=== PATIENT | female | born 1990 | race African-American/Black ===

== ENCOUNTER 2016-09-23 09:11 | Emergency (ER) | payer SELFPAY ==
[2016-09-23 09:18] VITALS: BP 111/78; PULSE 63; TEMP 97.8; BMI 25.6
[2016-09-23] MEDS ORDERED: SODIUM CHLORIDE 1,000 ML IV STA (10:23)
[2016-09-23] MEDS ORDERED: ONDANSETRON 4 MG/2 ML VIAL IVPUSH ONE (10:23)
[2016-09-23] MEDS ORDERED: KETOROLAC TROMETHAMINE 30 MG/1 ML VIAL IVPUSH ONE (10:23)
[2016-09-23] MEDS ORDERED: KETOROLAC TROMETHAMINE 30 MG/1 ML VIAL ONE (10:46)
[2016-09-23] MEDS ORDERED: ONDANSETRON 4 MG/2 ML VIAL ONE (10:47)
[2016-09-23 11:28] LABS: BASOPHIL 0.9 % (0-2.0); MCH 28.6 pg (25.7-33.7); MCHC 33.7 g/dl (32.0-36.0); MEAN PLT VOLUME 9.7 fl (7.5-11.1); NEUTROPHILS 56.4 % (42.8-82.8); PLATELET COUNT 203 K/MM3 (134-434); RDW 14.7 % (11.6-15.6); WHITE BLOOD COUNT 5.3 K/mm3 (4.0-10.0)
[2016-09-23 11:32] LABS: URINE APPEARANCE SLCLOUDY; URINE BILIRUBIN NEGATIVE (NEGATIVE); URINE BLOOD NEGATIVE (NEGATIVE); URINE COLOR YELLOW; URINE GLUCOSE (UA) NEGATIVE (NEGATIVE); URINE KETONE NEGATIVE (NEGATIVE); URINE LEUK ESTERASE NEGATIVE (NEGATIVE); URINE NITRITE NEGATIVE (NEGATIVE); URINE PROTEIN NEGATIVE (NEGATIVE); URINE UROBILINOGEN NEGATIVE E.U./dl (0.2-1.0)
--- NOTE | 2016-09-23 11:35 | PDOC ---
History of Present Illness - General Chief Complaint: Pain Stated Complaint: abd pain SORE THROAT, NAUSEA Time Seen by Provider: 09/23/16 10:05 History Source: Patient Exam Limitations: No Limitations - History of Present Illness Travel History: No Initial Comments: 09/23/16 11:25 26-year-old female presents to the emergency room with complaints of sore throat , mild frontal headache, chills, upper abdominal pain, nausea with 2 episodes of vomiting. Patient unsure for last menses and is requesting a test today. Patient denies recent travel, recent sick contacts, difficulty swallowing , dizziness, visual changes, neck stiffness, chest pain, shortness of breath, cough, lower abdominal pain, dysuria, diarrhea or rash. Patient denies medical history. Timing/Duration: reports: constant Quality: reports: moderate Abdominal Pain Onset Location: reports: epigastric Pain Radiation: reports: no radiation Activities at Onset: reports: none Aggravating Factors: improves with: None Alleviating Factors: improves with: None Past History - Travel Traveled outside of the country in the last 30 days: No Close contact w/someone who was outside of country & ill: No - Past Medical History Allergies/Adverse Reactions: Allergies Allergy/AdvReac Type Severity Reaction Status Date / Time No Known Allergies Allergy Verified 09/23/16 09:15 Home Medications: Ambulatory Orders NK [No Known Home Medication] 09/23/16 Asthma: Yes - Psycho/Social/Smoking Cessation Hx Anxiety: No Suicidal Ideation: No Smoking History: Never smoked Information on smoking cessation initiated: No Hx Alcohol Use: No Drug/Substance Use Hx: No Substance Use Type: None Patient Lives Alone: No Review of Systems - Review of Systems Able to Perform ROS?: Yes Constitutional: No: Symptoms Reported HEENTM: Yes: Throat Pain Respiratory: No: Symptoms reported Cardiac (ROS): No: Symptoms Reported ABD/GI: Yes: Nausea, Abdominal cramping. No: Vomiting : Yes: Frequency Musculoskeletal: No: Symptoms Reported Integumentary: No: Symptoms Reported Neurological: Yes: Headache (mild frontal) *Physical Exam - Vital Signs Last Vital Signs Temp Pulse Resp BP Pulse Ox 97.8 F 63 18 111/78 100 09/23/16 09:16 09/23/16 09:16 09/23/16 09:16 09/23/16 09:16 09/23/16 09:16 - Physical Exam General Appearance: Yes: Nourished, Appropriately Dressed. No: Apparent Distress HEENT: positive: EOMI, PAYTON, TMs Normal, Pharyngeal Erythema, Tonsillar Erythema. negative: Tonsillar Exudate Neck: negative: Supple Respiratory/Chest: positive: Lungs Clear, Normal Breath Sounds. negative: Respiratory Distress, Accessory Muscle Use Cardiovascular: positive: Regular Rhythm, Regular Rate. negative: Murmur Gastrointestinal/Abdominal: positive: Soft, Tenderness (epigastric and suprapubic) Musculoskeletal: negative: CVA Tenderness Extremity: positive: Normal Capillary Refill. negative: Pedal Edema Integumentary: positive: Normal Color, Warm, Moist Neurologic: positive: Motor Strength 5/5 (ambulatory) ED Treatment Course - LABORATORY CBC & Chemistry Diagram: 09/23/16 10:32 09/23/16 10:32 - Medications Given in the ED: ED Medications Discontinued Medications Generic Name Dose Route Start Last Admin Trade Name Freq PRN Reason Stop Dose Admin Sodium Chloride 1,000 mls @ 1,000 mls/hr 09/23/16 10:23 09/23/16 10:52 Normal Saline - IV 09/23/16 11:22 1,000 mls/hr ASDIR STA Administration Medical Decision Making - Medical Decision Making 09/23/16 11:01 Patient with complaints of sore throat, mild frontal headache, epigastric pain and with nausea. Patient examined epigastric tenderness with tonsillar and posterior pharynx erythema. Patient ordered for rapid strep including urine, CBC , comp, IV fluids, Toradol and Zofran. 09/23/16 11:54 Laboratory Tests 09/23/16 09/23/16 10:32 10:32 WBC 5.3 Hgb 12.2 Hct 36.2 Neutrophils % 56.4 Urine Ketones Negative Urine Nitrite Negative Ur Leukocyte Esterase Negative Patient negative for strep 09/23/16 12:07 Laboratory Tests 09/23/16 09/23/16 09/23/16 10:32 10:32 10:32 WBC 5.3 Hgb 12.2 Hct 36.2 Plt Count 203 Neutrophils % 56.4 Sodium 140 Potassium 4.5 Chloride 106 Carbon Dioxide 26 Anion Gap 8 BUN 13 Creatinine 0.7 Random Glucose 76 AST 20 ALT 28 Urine Ketones Negative Urine Nitrite Negative Ur Leukocyte Esterase Negative Urine HCG, Qual Negative Patient states feeling better with no complaints presently. Patient will be discharged home with recommendations to eat bland food rest and stay well- hydrated. *DC/Admit/Observation/Transfer Diagnosis at time of Disposition: Sore throat, Epigastric pain, Nausea - Discharge Dispostion Disposition: HOME Condition at time of disposition: Improved - Referrals Referrals: Taj Madden [Primary Care Provider] - - Patient Instructions Printed Discharge Instructions: Sore Throat Additional Instructions: Please drink plenty of fluids, rest, eat bland food for the next 48-72 hours.
[2016-09-23 11:51] LABS: ALBUMIN 3.9 g/dl (3.4-5.0); ANION GAP 8 (8-16); BILIRUBIN,TOTAL 0.8 mg/dL (0.2-1.0); CALCIUM 8.7 mg/dL (8.5-10.1); CO2 26 mmol/L (21-32); CREATININE 0.7 mg/dL (0.55-1.02); GLUCOSE,RANDOM 76 mg/dL (74-106); SGOT/AST 20 U/L (15-37); SGPT/ALT 28 U/L (12-78); TOT PROT 7.6 g/dl (6.4-8.2)
[2016-09-23 11:52] LABS: ALK PHOS 58 U/L (45-117)
== END 2016-09-23 12:30 | disposition home or self-care (01) ==
LOC: JER 09:11
PROC: 3E0337Z Introduction of Electrolytic and Water Balance Substance into Peripheral Vein, Percutaneous Approach (ICD-10-PCS; principal; 2016-09-23)
DX: J02.9 Acute pharyngitis, unspecified (principal); R10.30 Lower abdominal pain, unspecified; R11.0 Nausea
CPT/HCPCS: 36415; 80053; 81003; 84703; 85025; 87070; 87430; 99282-25

== ENCOUNTER 2017-06-28 03:47 | Emergency (ER) | payer OTHER ==
[2017-06-28 04:08] VITALS: BMI 26.5
[2017-06-28] MEDS ORDERED: ACETAMINOPHEN 325 MG TABLET (FP) PO ONE (04:36)
--- NOTE | 2017-06-28 04:45 | PDOC ---
History of Present Illness - General Chief Complaint: Sore Throat Stated Complaint: ABDOMINAL PAIN Time Seen by Provider: 06/28/17 04:05 History Source: Patient Exam Limitations: No Limitations - History of Present Illness Travel History: No Initial Comments: 06/28/17 04:40 This is a 27-year-old woman with past medical history of asthma who presents emergency Department 2 days of sore throat, subjective fevers, nasal congestion, rhinorrhea, global headache, moist nonproductive cough and lower abdominal pain. Patient denies sick contacts. Patient has not had her flu shot this year. Patient states she is an LMP of 1/6 and has not had care as of now. Patient also complains of constipation for 3 days with the usual bowel movement of daily to every other day. Patient denies any chest pain, shortness of breath, dysuria, hematuria, rectal bleeding, vaginal bleeding, vaginal discharge. Past History - Past Medical History Allergies/Adverse Reactions: Allergies Allergy/AdvReac Type Severity Reaction Status Date / Time No Known Allergies Allergy Verified 06/28/17 04:07 Home Medications: Ambulatory Orders Vit/Iron Fum/Folic AC [ Tablet] 1 each PO DAILY 06/28/17 Asthma: Yes - Reproductive History (#): 4 Para: 2 - Suicide/Smoking/Psychosocial Hx Smoking History: Never smoked Have you smoked in the past 12 months: No Information on smoking cessation initiated: No Hx Alcohol Use: No Drug/Substance Use Hx: No Substance Use Type: None Review of Systems - Review of Systems Able to Perform ROS?: Yes Is the patient limited Albanian proficient: No Constitutional: Yes: See HPI HEENTM: Yes: See HPI Respiratory: Yes: See HPI Cardiac (ROS): No: Symptoms Reported ABD/GI: Yes: See HPI : No: Symptoms Reported Musculoskeletal: No: Symptoms Reported Integumentary: No: Symptoms Reported Neurological: No: Symptoms reported Endocrine: No: Symptoms Reported Hematologic/Lymphatic: No: Symptoms Reported *Physical Exam - Vital Signs Last Vital Signs Temp Pulse Resp BP Pulse Ox 98.6 F 83 14 124/74 99 06/28/17 04:07 06/28/17 04:07 06/28/17 04:07 06/28/17 04:07 06/28/17 04:07 - Physical Exam General Appearance: Yes: Appropriately Dressed. No: Apparent Distress HEENT: positive: TMs Normal, Pharyngeal Erythema, Tonsillar Erythema, Nasal Congestion, Rhinorrhea. negative: Tonsillar Exudate, Sinus Tenderness Neck: positive: Trachea midline, Supple. negative: Tender, Stridor Respiratory/Chest: positive: Lungs Clear, Normal Breath Sounds. negative: Respiratory Distress, Accessory Muscle Use Cardiovascular: positive: Regular Rhythm, Regular Rate. negative: Murmur Female Pelvic Exam: positive: normal external exam, cervical os closed, normal adnexa, discharge (milky white). negative: CMT, adnexal tenderness, vaginal bleeding Gastrointestinal/Abdominal: positive: Normal Bowel Sounds, Soft. negative: Tender Musculoskeletal: positive: Normal Inspection. negative: CVA Tenderness Extremity: positive: Normal Inspection, Normal Range of Motion Integumentary: positive: Normal Color, Dry, Warm Neurologic: positive: Alert, Normal Response ED Treatment Course - LABORATORY CBC & Chemistry Diagram: 06/28/17 05:00 06/28/17 05:00 - RADIOLOGY Radiology Studies Ordered: Category Date Time Status TRANSVAGINAL US PREG [US] Stat Ultrasound 06/28/17 04:36 Ordered Medical Decision Making - Medical Decision Making 06/28/17 04:46 CC: Flulike symptoms and lower abdominal pain for 2 days A/P: 27-year-old with flulike symptoms and lower abdominal pain for 2 days with constipation for 3 days TMs clear with appropriate light reflex. No erythema or exudates noted to external auditory canal. Erythema present and pharynx. Cobblestoning noted to posterior oropharynx. No tonsillar exudate present. No halitosis present. Lungs clear to auscultation bilaterally. RRR. S1 and S2 present. No murmur, rub or gallop auscultated. Abdomen soft nontender nondistended. No CVA tenderness elicited. [employer] Specialist exam: normal external exam milky white odorless discharge present in vault. No blood noted. Cervical os closed No cervical motion or adnexal tenderness 11 weeks 1 day by dates Differential diagnoses include upper respiratory infection, pharyngitis of bacterial versus viral origin; ectopic , round ligament pain, constipation, urinary tract infection, PID Rapid strep influenza testing. Tylenol 650 mg orally now. CBC, BMP, type and screen, beta hCG, urinalysis, urine culture, transvaginal ultrasound 06/28/17 07:12 I have given report to TIMO Dubose regarding this patient. Pt's initial chief complaint: lower abdominal pain, sore throiat Pt's work up completed prior to sign out: Labs, UA Pt treatment given from prior staff: Tylenol Pt plan to be completed: HONEY Dispo: [ Pending] *DC/Admit/Observation/Transfer Diagnosis at time of Disposition: Abdominal pain Qualifiers: Abdominal location: unspecified location Qualified Code(s): R10.9 - Unspecified abdominal pain URI (upper respiratory infection) Qualifiers: URI type: unspecified viral URI Qualified Code(s): J06.9 - Acute upper respiratory infection, unspecified - Discharge Dispostion Disposition: AGAINST MEDICAL ADVICE - Referrals Referrals: Mikaela Mixon MD [Primary Care Provider] - - Patient Instructions Additional Instructions: Your flu and strep tests were negative. The rest of your labs and your ultrasound report are still pending. You have decided to leave before evaluation is complete and were advised of medical risks. You have requested that ED call with results and have provided your phone number. Please follow-up with your OB next week - Post Discharge Activity
[2017-06-28] MEDS ORDERED: ACETAMINOPHEN 325 MG TABLET (FP) ONE (04:59)
[2017-06-28 05:09] LABS: BASO % 0.5 % (0-2.0); EOS % 1.6 % (0-4.5); HEMOGLOBIN 11.9 GM/dL (10.7-15.3); LYMPH % 18.5 % (8-40); MCH 30.5 pg (25.7-33.7); MCHC 35.1 g/dl (32.0-36.0); MEAN CELL VOLUME 86.8 fl (80-96); MONO % 12.4 % (3.8-10.2); PLATELET COUNT 208 K/MM3 (134-434); RBC 3.91 M/mm3 (3.60-5.2); RDW 13.6 % (11.6-15.6); WHITE BLOOD COUNT 8.7 K/mm3 (4.0-10.0)
[2017-06-28 05:39] LABS: URINE APPEARANCE SLCLOUDY; URINE BILIRUBIN NEGATIVE (<2.0 mg/dL); URINE BLOOD NEGATIVE (NEGATIVE); URINE COLOR YELLOW; URINE GLUCOSE (UA) NEGATIVE (NEGATIVE); URINE KETONE NEGATIVE (NEGATIVE); URINE NITRITE NEGATIVE (NEGATIVE); URINE PROTEIN NEGATIVE (NEGATIVE); URINE UROBILINOGEN NEGATIVE mg/dL (0.2-1.0)
[2017-06-28 06:21] LABS: URINE LEUK ESTERASE 2+ (NEGATIVE)
[2017-06-28 06:22] LABS: EPI CELLS FEW /HPF (FEW); URINE MUCUS FEW
[2017-06-28 07:29] VITALS: BP 104/60; PULSE 81; TEMP 98
--- NOTE | 2017-06-28 07:35 | PDOC ---
*Physical Exam - Vital Signs Last Vital Signs Temp Pulse Resp BP Pulse Ox 98 F 81 17 104/60 98 06/28/17 07:28 06/28/17 07:28 06/28/17 07:28 06/28/17 07:28 06/28/17 07:28 - Physical Exam General Appearance: Yes: Appropriately Dressed. No: Apparent Distress Neck: positive: Supple Cardiovascular: positive: Regular Rate, S1, S2 Gastrointestinal/Abdominal: positive: Soft. negative: Tender Integumentary: positive: Dry, Warm Neurologic: positive: Fully Oriented, Alert, Normal Mood/Affect ED Treatment Course - LABORATORY CBC & Chemistry Diagram: 06/28/17 05:00 06/28/17 05:00 - ADDITIONAL ORDERS Additional order review: Laboratory Results 06/28/17 05:05 Urine Color Yellow Urine Appearance Slcloudy Urine pH 6.0 Ur Specific [place] 1.019 Urine Protein Negative Urine Glucose (UA) Negative Urine Ketones Negative Urine Blood Negative Urine Nitrite Negative Urine Bilirubin Negative Urine Urobilinogen Negative Ur Leukocyte Esterase 2+ H Urine WBC (Auto) 4 Urine RBC (Auto) 1 Ur Epithelial Cells Few Urine Mucus Few 06/28/17 05:00 RBC 3.91 MCV 86.8 MCHC 35.1 RDW 13.6 MPV 9.0 Neutrophils % 67.0 Lymphocytes % 18.5 D Monocytes % 12.4 H Eosinophils % 1.6 Basophils % 0.5 - Medications Given in the ED: ED Medications Discontinued Medications Generic Name Dose Route Start Last Admin Trade Name Freq PRN Reason Stop Dose Admin Acetaminophen 650 mg 06/28/17 04:36 06/28/17 05:01 Tylenol - PO 06/28/17 04:37 650 mg ONCE ONE Administration Medical Decision Making - Medical Decision Making 06/28/17 07:34 Patient signed out to me at 7 AM by SEBASTIAN Vazquez Pt is a 27-year-old female, history of asthma, currently approximately 11 weeks per dates, here with URI symptoms and lower abdominal pain. + pharyngeal erythema on exam per prior team. Flu, strep and ultrasound pending. UA with 2+ leuks and 4 wbc, urine culture pending. Patient denies any dysuria, flank pain, nausea, vomiting or fevers 06/28/17 09:07 On reevaluation patient denies any abdominal pain at this time. Flu and strep neg. Ultrasound still pending. Patient, however, wants to leave, states she's been here since 4 AM and wants to go home. Patient was advised that there are blood work in addition to ultrasound report that is still pending. Patient requesting that we call her with results. Patient signed AMA form and walked out of ED without signing discharge papers *DC/Admit/Observation/Transfer Diagnosis at time of Disposition: Abdominal pain Qualifiers: Abdominal location: unspecified location Qualified Code(s): R10.9 - Unspecified abdominal pain URI (upper respiratory infection) Qualifiers: URI type: unspecified viral URI Qualified Code(s): J06.9 - Acute upper respiratory infection, unspecified - Discharge Dispostion Disposition: AGAINST MEDICAL ADVICE - Referrals Referrals: Mikaela Mixon MD [Primary Care Provider] - - Patient Instructions Additional Instructions: Your flu and strep tests were negative. The rest of your labs and your ultrasound report are still pending. You have decided to leave before evaluation is complete and were advised of medical risks. You have requested that ED call with results and have provided your phone number. Please follow-up with your OB next week - Post Discharge Activity
[2017-06-28 10:17] LABS: ANION GAP 7 (8-16); BLOOD UREA NITROGEN 9 mg/dL (7-18); CALCIUM 8.6 mg/dL (8.5-10.1); CHLORIDE 107 mmol/L (98-107); CO2 22 mmol/L (21-32); CREATININE 0.5 mg/dL (0.55-1.02); GLUCOSE,RANDOM 92 mg/dL (74-106); POTASSIUM 4.1 mmol/L (3.5-5.1); SODIUM 136 mmol/L (136-145)
== END 2017-06-28 08:57 | disposition left against medical advice (07) ==
LOC: JER 03:47
PROC: 3E033GC Introduction of Other Therapeutic Substance into Peripheral Vein, Percutaneous Approach (ICD-10-PCS; principal; 2017-06-28)
PROC: 3E0333Z Introduction of Anti-inflammatory into Peripheral Vein, Percutaneous Approach (ICD-10-PCS; 2017-06-28)
DX: J02.9 Acute pharyngitis, unspecified (principal); R10.9 Unspecified abdominal pain
CPT/HCPCS: 36415; 76801-TC; 80048; 81003; 81015; 84702; 85025; 87070; 87075; 87086; 87205; 87430; 87804; 96374; 96375; 99285-25

== ENCOUNTER 2018-02-07 20:51 | Emergency (ER) | payer OTHER ==
[2018-02-07 21:02] VITALS: TEMP 99.5; BMI 34.9
--- NOTE | 2018-02-07 21:39 | PDOC ---
History of Present Illness - General Chief Complaint: Lightheaded Stated Complaint: DIZZY, FEVER Time Seen by Provider: 02/07/18 21:29 - History of Present Illness Initial Comments: 02/07/18 21:39 27-year-old woman with past medical history of asthma who presents 4 days after vaginal , headache, nausea, dizziness felt like she was going to pass out 1 hour ago while having a BM vaginal spotting since giving / stopped breast feeding since yesterday Past History - Past Medical History Allergies/Adverse Reactions: Allergies Allergy/AdvReac Type Severity Reaction Status Date / Time No Known Allergies Allergy Verified 02/07/18 20:58 Home Medications: Ambulatory Orders Vit/Iron Fum/Folic AC [ Tablet] 1 each PO DAILY 06/28/17 Anemia: No Asthma: Yes Cancer: No Cardiac Disorders: No CVA: No COPD: No DVT: No Dementia: No Diabetes: No Dialysis: No GI Disorders: No Disorders: No HTN: No Hypercholesterolemia: No Kidney Stones: No Liver Disease: No Psychiatric Problems: No Seizures: No Thyroid Disease: No Lung CA: No - Reproductive History (#): 4 Para: 2 - Immunization History Immunization Up to Date: Yes - Suicide/Smoking/Psychosocial Hx Smoking History: Never smoked Have you smoked in the past 12 months: No Information on smoking cessation initiated: No Hx Alcohol Use: No Drug/Substance Use Hx: No Substance Use Type: None *Physical Exam - Vital Signs Last Vital Signs Temp Pulse Resp BP Pulse Ox 99.5 F 104 H 16 133/75 99 02/07/18 20:59 02/07/18 20:59 02/07/18 20:59 02/07/18 20:59 02/07/18 20:59 - Physical Exam Comments: 02/07/18 21:55 normal exam. ED Treatment Course - LABORATORY CBC & Chemistry Diagram: 02/07/18 22:00 02/07/18 22:00 Medical Decision Making - Medical Decision Making DDX including but not limited to: W/U: - TX: - ED Course: 02/07/18 21:55 100mg PO labetolol for HTN of systolic BP 146 on both arms 02/07/18 21:56 Tylenol given for headache 02/07/18 22:30 Dr. Phelps ([facility]) contacted. Pending call back. 02/07/18 23:40 Dr. Phelps second attempt at contacting. UA: + leuk esterase, + WBC TSH: .24 *DC/Admit/Observation/Transfer - Referrals Referrals: Chiquis Madden [Primary Care Provider] - - Patient Instructions - Post Discharge Activity
--- NOTE | 2018-02-07 21:41 | PDOC ---
Attending Attestation - HPI HPI: 02/07/18 22:46 The patient is a 27 year old female, with a significant PMH of asthma, who presents to the emergency department with headache that began tonight. The patient states she endorses associated symptoms of nausea, dizziness and felt like she was going to pass out 1 hour ago after her last BM. The patient mentions she gave 4 days and notes having mild vaginal spotting since giving . The patient denies chest pain and shortness of breath. Denies fever, chills, vomit, diarrhea and constipation. Denies dysuria, frequency, urgency and hematuria. Allergies: NKDA Past surgical history: Social history: No reported PCP: Dr. Phelps Documentation prepared by Abraham Peterson, acting as medical staffing coordinator for Honey Will MD. - Physicial Exam PE: 02/07/18 22:46 GENERAL: Awake, alert, and fully oriented, in no acute distress HEAD: No signs of trauma EYES: PERRLA, EOMI, sclera anicteric, conjunctiva clear ENT: Auricles normal inspection, hearing grossly normal, nares patent, oropharynx clear without exudates. Moist mucosa NECK: Normal ROM, supple, no lymphadenopathy, JVD, or masses LUNGS: Breath sounds equal, clear to auscultation bilaterally. No wheezes, and no crackles HEART: Regular rate and rhythm, normal S1 and S2, no murmurs, rubs or gallops ABDOMEN: Soft, nontender, normoactive bowel sounds. No flank pain or suprapubic pain. No guarding, no rebound. No masses EXTREMITIES:+musculoskeletal mid back pain. No calf pain bilaterally. Normal range of motion, no edema. No clubbing or cyanosis. No cords, erythema, or tenderness SKIN: Warm, Dry, normal turgor, no rashes or lesions noted. <Abraham Peterson - Last Filed: 02/07/18 22:46> - Resident Resident Name: Terra Guillen - ED Attending Attestation I have performed the following: I have examined & evaluated the patient, The case was reviewed & discussed with the resident, I agree w/resident's findings & plan - Medical Decision Making 02/07/18 21:55 Pt's BP is 146/94 bilaterally. She has a strong fam hx of elevated BP and she has had on off elevated BP in the past. She has never been on BP meds though. Pt will be given a dose of labetalol. Pt states that she has been breast feeding, but she stopped because she wasn't feeling well. Pt has complaint of right hamstring pain and she thinks the leg is swollen. EKG shows S1Q3T3 pattern. Labs pending. We will get a CTA 02/07/18 23:40 Patient Name: KAM MONZON THIS IS A PRELIMINARY REPORT FROM [facility] DATE OF SERVICE: 2018-02-07 22:49:20 IMAGES: 40 EXAM: DUPLEX VASCULAR US-2 LEGS HISTORY: Rule out DVT COMPARISON: None. FINDINGS: There is no DVT of the right or left lower extremity. IMPRESSION: No DVT. 02/08/18 00:38 Patient Name: KAM MONZON THIS IS A PRELIMINARY REPORT FROM [facility] DATE OF SERVICE: 2018-02-07 23:57:04 IMAGES: 137 EXAM: CT HEAD WITHOUT CONTRAST No acute brain parenchymal abnormality. No hemorrhage, mass or acute territorial infarct. Small calcifications bilateral basal ganglia. Clear visualized paranasal sinuses. Visualized mastoid air cells clear. THIS DOCUMENT HAS BEEN ELECTRONICALLY SIGNED <Honey Will - Last Filed: 02/08/18 00:38>
[2018-02-07] MEDS ORDERED: LABETALOL HCL 100 MG TABLET (FP) PO ONE (21:54)
[2018-02-07] MEDS ORDERED: ACETAMINOPHEN 325 MG TABLET (FP) PO ONE (21:56)
[2018-02-07 22:10] LABS: BASO % 0.4 % (0-2.0); EOS % 1.1 % (0-4.5); HEMATOCRIT 30.1 % (32.4-45.2); HEMOGLOBIN 10.8 GM/dL (10.7-15.3); LYMPH % 10.5 % (8-40); MCH 32.2 pg (25.7-33.7); MCHC 35.7 g/dl (32.0-36.0); MEAN CELL VOLUME 90.1 fl (80-96); MONO % 6.9 % (3.8-10.2); NEUT % 81.1 % (42.8-82.8); PLATELET COUNT 149 K/MM3 (134-434); RBC 3.35 M/mm3 (3.60-5.2); RDW 13.9 % (11.6-15.6); WHITE BLOOD COUNT 11.3 K/mm3 (4.0-10.0)
[2018-02-07 22:28] LABS: URINE APPEARANCE SLCLOUDY; URINE BILIRUBIN NEGATIVE (<2.0 mg/dL); URINE COLOR YELLOW; URINE GLUCOSE (UA) NEGATIVE (NEGATIVE); URINE KETONE NEGATIVE (NEGATIVE); URINE LEUK ESTERASE 3+ (NEGATIVE); URINE NITRITE NEGATIVE (NEGATIVE); URINE PROTEIN 1+ (NEGATIVE); URINE UROBILINOGEN NEGATIVE mg/dL (0.2-1.0)
[2018-02-07 22:34] LABS: EPI CELLS FEW /HPF (FEW); URINE MUCUS RARE
[2018-02-07 22:39] LABS: ALK PHOS 102 U/L (45-117); ANION GAP 7 MMOL/L (8-16); BILIRUBIN,TOTAL 0.4 mg/dL (0.2-1); BLOOD UREA NITROGEN 9 mg/dL (7-18); CALCIUM 8.5 mg/dL (8.5-10.1); CHLORIDE 108 mmol/L (98-107); CO2 25 mmol/L (21-32); CREATININE 0.6 mg/dL (0.55-1.3); GLUCOSE,RANDOM 78 mg/dL (74-106); POTASSIUM 3.7 mmol/L (3.5-5.1); SGOT/AST 35 U/L (15-37); SGPT/ALT 37 U/L (13-61); SODIUM 140 mmol/L (136-145); TOT PROT 6.6 g/dl (6.4-8.2)
[2018-02-07 22:44] LABS: COCAINE, UR NEGATIVE ng/ml (CUTOFF=300); METHADONE, UR NEGATIVE ng/ml (CUTOFF=300); OPIATES, URI NEGATIVE ng/ml (CUTOFF=300); PHENCYCLIDINE,URINE NEGATIVE ng/ml (CUTOFF=25); URINE AMPHETAMINES NEGATIVE ng/ml (CUTOFF=500); URINE BARBITURATES NEGATIVE ng/ml (CUTOFF=200); URINE BENZODIAZEPINES NEGATIVE ng/ml (CUTOFF=200)
[2018-02-07] MEDS ORDERED: ACETAMINOPHEN 325 MG TABLET (FP) ONE (23:33)
[2018-02-07] MEDS ORDERED: LABETALOL HCL 5 MG/1 ML (200MG/40ML VIAL) IVPB ONE (23:33)
[2018-02-07] MEDS ORDERED: LABETALOL HCL 100 MG TABLET (FP) ONE (23:37)
[2018-02-07] MEDS ORDERED: CEPHALEXIN MONOHYDRATE 500 MG CAPSULE (UD) PO ONE (23:38)
[2018-02-08] MEDS ORDERED: CEPHALEXIN MONOHYDRATE 500 MG CAPSULE (UD) ONE (00:13)
[2018-02-08 02:51] VITALS: BP 132/74; PULSE 92
--- NOTE | 2018-02-08 03:07 | PDOC ---
*Physical Exam - Vital Signs Last Vital Signs Temp Pulse Resp BP Pulse Ox 99.5 F 104 H 16 133/75 99 02/07/18 20:59 02/07/18 20:59 02/07/18 20:59 02/07/18 20:59 02/07/18 20:59 ED Treatment Course - LABORATORY CBC & Chemistry Diagram: 02/07/18 22:00 02/07/18 22:00 - ADDITIONAL ORDERS Additional order review: Laboratory Results 02/07/18 02/07/18 02/07/18 22:15 22:15 22:15 D-Dimer Sodium Potassium Chloride Carbon Dioxide Anion Gap BUN Creatinine Creat Clearance w eGFR Random Glucose Calcium Total Bilirubin AST ALT Alkaline Phosphatase Total Protein Albumin TSH Urine Color Yellow Urine Appearance Slcloudy Urine pH 6.0 Ur Specific [place] 1.020 Urine Protein 1+ H Urine Glucose (UA) Negative Urine Ketones Negative Urine Blood 3+ H Urine Nitrite Negative Urine Bilirubin Negative Urine Urobilinogen Negative Ur Leukocyte Esterase 3+ H Urine WBC (Auto) 74 Urine RBC (Auto) 156 Ur Epithelial Cells Few Urine Mucus Rare Urine HCG, Qual Positive Opiates Screen Negative Methadone Screen Negative Barbiturate Screen Negative Phencyclidine Screen Negative Ur Amphetamines Screen Negative MDMA (Ecstasy) Screen Negative Benzodiazepines Screen Negative Cocaine Screen Negative U Marijuana (THC) Screen Negative 02/07/18 02/07/18 22:00 22:00 D-Dimer 1286 H Sodium 140 Potassium 3.7 Chloride 108 H Carbon Dioxide 25 Anion Gap 7 L BUN 9 Creatinine 0.6 Creat Clearance w eGFR > 60 Random Glucose 78 Calcium 8.5 Total Bilirubin 0.4 AST 35 ALT 37 Alkaline Phosphatase 102 Total Protein 6.6 Albumin 3.0 L TSH 0.24 L Urine Color Urine Appearance Urine pH Ur Specific [place] Urine Protein Urine Glucose (UA) Urine Ketones Urine Blood Urine Nitrite Urine Bilirubin Urine Urobilinogen Ur Leukocyte Esterase Urine WBC (Auto) Urine RBC (Auto) Ur Epithelial Cells Urine Mucus Urine HCG, Qual Opiates Screen Methadone Screen Barbiturate Screen Phencyclidine Screen Ur Amphetamines Screen MDMA (Ecstasy) Screen Benzodiazepines Screen Cocaine Screen U Marijuana (THC) Screen 02/07/18 22:00 RBC 3.35 L MCV 90.1 MCHC 35.7 RDW 13.9 MPV 9.0 Neutrophils % 81.1 D Lymphocytes % 10.5 D Monocytes % 6.9 Eosinophils % 1.1 Basophils % 0.4 - Medications Given in the ED: ED Medications Discontinued Medications Generic Name Dose Route Start Last Admin Trade Name Jesse PRN Reason Stop Dose Admin Acetaminophen 650 mg 02/07/18 21:56 02/07/18 23:38 Tylenol - PO 02/07/18 21:57 650 mg ONCE ONE Administration Cephalexin HCl 500 mg 02/07/18 23:38 02/08/18 00:12 Keflex - PO 02/07/18 23:39 500 mg ONCE ONE Administration Labetalol HCl 100 mg 02/07/18 21:54 02/07/18 23:38 Normodyne - PO 02/07/18 21:55 100 mg ONCE ONE Administration Medical Decision Making - Medical Decision Making 02/08/18 03:07 Radha Haney is a 27yo woman, 4 days , who presented to the ED with nausea and lightheadness that started while having a bowel movement. - Labs were notable for slight leukocytosis to 11, d-dimer to 1286 likely due to recent . - CT head unremarkable - Duplex w/o any thrombus noted - Patient feels improved and would like to be discharged home. - UA returned with WBC and RBC. Culture pending. Patient informed, will be called if culture is positive. She is currently asymptomatic so will not be treated unless the culture indicates starting antibiotics. - Given resolution of symptoms and negative workup otherwise, will cancel CTA. Discussed with Dr Ramirez. Rachele العلي PGY1 *DC/Admit/Observation/Transfer Diagnosis at time of Disposition: Dizziness - Discharge Dispostion Disposition: HOME Condition at time of disposition: Stable Decision to Admit order: No - Referrals Referrals: Chiquis Madden [Primary Care Provider] - - Patient Instructions Printed Discharge Instructions: DI for Dizziness-Nonvertigo Additional Instructions: Discharge Instructions: - You were seen in the ED for dizziness and nausea. Your blood tests, CT scan, and an ultrasound of your legs were all normal - You should be seen by your primary physician within the next 2-3 days for follow up to make sure you are still doing well - You had a urine test showing some bacteria and white blood cells. A culture was sent, and if it is positive you will receive a phone call to sheepskin pickler antibiotics at your pharmacy. Otherwise, you do not need to take any medication. - Make sure you are staying well hydrated. Drink additional fluids at home over the next few days. - Seek immediate medical care if you have a racing heart, shortness of breath, chest pain, or fainting at home. - Post Discharge Activity Forms/Work/School Notes: Back to Work
--- NOTE | 2018-02-08 10:31 | EKG ---
Test Reason : Blood Pressure : / mmHG Vent. Rate : 091 BPM Atrial Rate : 091 BPM P-R Int : 136 ms QRS Dur : 076 ms QT Int : 350 ms P-R-T Axes : 026 028 014 degrees QTc Int : 430 ms NORMAL SINUS RHYTHM NORMAL ECG NO PREVIOUS ECGS AVAILABLE Confirmed by SHABANA SALCEDO MD ([id number]) on 02/08/2018 10:30:22 AM Referred By: Confirmed By:SHABANA SALCEDO MD
== END 2018-02-08 03:15 | disposition home or self-care (01) ==
LOC: JER 20:51
DX: O90.89 Other complications of the puerperium, not elsewhere classified (principal); R42 Dizziness and giddiness; M79.604 Pain in right leg; R22.41 Localized swelling, mass and lump, right lower limb
CPT/HCPCS: 36415; 70450-TC; 80053; 80307; 81003; 81015; 84443; 84703; 85025; 85379; 87086; 93005; 93010; 93970-TC; 99283-25

== ENCOUNTER 2018-08-31 23:07 | Emergency (ER) | payer OTHER ==
[2018-08-31 23:26] VITALS: BP 127/71; PULSE 70; TEMP 98.9; BMI 21.9
--- NOTE | 2018-09-01 | PDOC ---
History of Present Illness - General History Source: Patient Exam Limitations: No Limitations - History of Present Illness Timing/Duration: 24 hours Severity: mild Modifying Factors: improves with: other (she coughs when she lays down to sleep) Associated Symptoms: reports: cough <Vidhya Duong Haleigh - Last Filed: 09/01/18 00:42> <VinceEbonidonny - Last Filed: 09/01/18 06:12> - General Chief Complaint: Cold Symptoms Stated Complaint: SOB/COUGH Time Seen by Provider: 09/01/18 00:00 Past History <Vidhya Duong Haleigh - Last Filed: 09/01/18 00:42> - Past Medical History Anemia: No Asthma: Yes Cancer: No Cardiac Disorders: No CVA: No COPD: No DVT: No Dementia: No Diabetes: No Dialysis: No GI Disorders: No Disorders: No HTN: No Hypercholesterolemia: No Kidney Stones: No Liver Disease: No Psychiatric Problems: No Seizures: No Thyroid Disease: No Lung CA: No - Reproductive History (#): 4 Para: 2 - Immunization History Immunization Up to Date: Yes - Suicide/Smoking/Psychosocial Hx Smoking History: Never smoked Have you smoked in the past 12 months: No Information on smoking cessation initiated: No Hx Alcohol Use: No Drug/Substance Use Hx: No Substance Use Type: None <VinceEbonidonny - Last Filed: 09/01/18 06:12> - Past Medical History Allergies/Adverse Reactions: Allergies Allergy/AdvReac Type Severity Reaction Status Date / Time No Known Allergies Allergy Verified 08/31/18 23:26 Home Medications: Ambulatory Orders Vit/Iron Fum/Folic AC [ Tablet] 1 each PO DAILY 06/28/17 Cephalexin [Keflex] 500 mg PO BID #14 capsule 02/10/18 Cephalexin [Keflex] 500 mg PO BID #14 capsule 02/10/18 Albuterol 0.083% Nebulizer Reyna [Ventolin 0.083% Nebulizer Soln -] 1 neb NEB Q6H #20 vial MDD 4 09/01/18 Albuterol Sulfate Inhaler - [Ventolin Hfa Inhaler -] 1 - 2 inh PO Q4H #1 inhaler 09/01/18 Methylprednisolone [Medrol Dose Emanuel] 4 mg PO ASDIR #21 tablet 09/01/18 Review of Systems - Review of Systems Able to Perform ROS?: Yes Is the patient limited Estonian proficient: No Constitutional: No: Symptoms Reported, See HPI, Chills, Diaphoresis, Fever, Loss of Appetite, Malaise, Night Sweats, Weakness, Weight Stable, Unintentional Wgt. Loss, Unexplained wgt Loss, Other HEENTM: Yes: Nose Congestion Respiratory: Yes: Cough Cardiac (ROS): No: Symptoms Reported, See HPI, Chest Pain, Edema, Irregular Heart Rate, Lightheadedness, Palpitations, Syncope, Chest Tightness, Other ABD/GI: No: Symptoms Reported, See HPI, Abdominal Distended, Abd. Pain w/ defecation, Blood Streaked Bowels, Constipated, Diarrhea, Difficulty Swallowing , Nausea, Poor Appetite, Poor Fluid Intake, Rectal Bleeding, Vomiting, Indigestion, Abdominal cramping, Tarry Stools, Other : No: Symptoms Reported, See HPI, Burning, Dysuria, Discharge, Frequency, Flank Pain, Hematuria, Incontinence, Pain, Urgency, Testicular Mass, Testicular Swelling, Lesions, Testicular Pain, Other Musculoskeletal: No: Symptoms Reported, See HPI, Back Pain, Gout, Joint Pain, Joint Swelling, Muscle Pain, Muscle Weakness, Neck Pain, Joint Stiffness, Other Integumentary: No: Symptoms Reported, See HPI, Bruising, Change in Color, Change in Hair/Nails, Dryness, Erythema, Flushing, Lesions, Lumps, Pallor, Pruritus, Rash, Sweating, Other Neurological: No: Symptoms reported, See HPI, Headache, Numbness, Paresthesia, Pre-Existing Deficit, Seizure, Tingling, Tremors, Weakness, Unsteady Gait, Ataxia, Dizziness, Other Psychiatric: No: Anxiety, Depression, Frequent Crying, Stressors, Sleep Pattern Change, Emotional Problems, Mood Swings, Change in Appetite, Other Endocrine: No: Symptoms Reported, See HPI, Excessive Sweating, Flushing, Intolerance to Cold, Intolerance to Heat, Increased Hunger, Increased Thirst, Increased Urine, Unexplained Weight Gain, Unexplained Weight Loss, Change in Weight, Other Hematologic/Lymphatic: No: Symptoms Reported, See HPI, Anemia, Blood Clots, Easy Bleeding, Easy Bruising, Bleeding Diathesis, Lymph Node Abnormalities, Swollen Glands, Other <Vidhya Duong - Last Filed: 09/01/18 00:42> *Physical Exam - Vital Signs Last Vital Signs Temp Pulse Resp BP Pulse Ox 98.9 F 70 18 127/71 100 08/31/18 23:24 08/31/18 23:24 08/31/18 23:24 08/31/18 23:24 08/31/18 23:24 - Physical Exam General Appearance: Yes: Nourished, Appropriately Dressed HEENT: positive: EOMI, PAYTON, Normal Voice, Nasal Congestion Neck: positive: Supple Respiratory/Chest: positive: Lungs Clear Cardiovascular: positive: Regular Rhythm, Regular Rate Gastrointestinal/Abdominal: positive: Normal Bowel Sounds, Soft Musculoskeletal: positive: Normal Inspection Extremity: positive: Normal Inspection, Normal Range of Motion Integumentary: positive: Normal Color, Warm Neurologic: positive: Fully Oriented, Alert, Motor Strength 5/5 <Vidhya Duong - Last Filed: 09/01/18 00:42> - Vital Signs Last Vital Signs Temp Pulse Resp BP Pulse Ox 98.9 F 70 18 127/71 100 08/31/18 23:24 08/31/18 23:24 08/31/18 23:24 08/31/18 23:24 08/31/18 23:24 <Andrew Clarke - Last Filed: 09/01/18 06:12> *DC/Admit/Observation/Transfer <Vidhya Duong - Last Filed: 09/01/18 00:42> <Andrew Clarke - Last Filed: 09/01/18 06:12> Diagnosis at time of Disposition: Cough, Nasal congestion - Discharge Dispostion Disposition: HOME Condition at time of disposition: Stable - Prescriptions Prescriptions: Albuterol 0.083% Nebulizer Reyna [Ventolin 0.083% Nebulizer Soln -] 1 neb NEB Q6H #20 vial MDD 4 Albuterol Sulfate Inhaler - [Ventolin Hfa Inhaler -] 1 - 2 inh PO Q4H #1 inhaler Methylprednisolone [Medrol Dose Emanuel] 4 mg PO ASDIR #21 tablet - Patient Instructions Printed Discharge Instructions: DI for Cough -- Adult, DI for Nasal Congestion Additional Instructions: please shrimp picker your medications at your pharmacy Use the inhaler or nebulizer for wheezing You may take over take over the counter nasal decongestant tablets to help with your congestion return for any worsening symptoms
[2018-09-01] MEDS ORDERED: predniSONE 20 MG TABLET (UD) PO ONE (00:31)
[2018-09-01] MEDS ORDERED: predniSONE 20 MG TABLET (UD) ONE ×2 (00:33→00:55)
--- NOTE | 2018-09-01 00:35 | PDOC ---
Attending Attestation - Resident Resident Name: [email or web address] - ED Attending Attestation I have performed the following: I have examined & evaluated the patient, The case was reviewed & discussed with the resident, I agree w/resident's findings & plan, Exceptions are as noted - HPI HPI: 09/01/18 00:33 28 yo female with c/o nocturnal cough h/o asthma,last used her nebulizer yesterday - Physicial Exam PE: 09/01/18 00:33 wnwd 28 yo female head ncat neack supple lungs no wheezing,no crackles cvs [id number] abd soft,nontender skin warm and dry extremities no edema neuro axox3,ambulatory psych appropriate - Medical Decision Making 09/01/18 00:35 pt has no active wheezing currently she does have a nebulizer at home but has run out of her inhaler imp cough/post nasal drip/reactive airway RX steroids/ventolin inhaler d/c home
== END 2018-09-01 03:00 | disposition home or self-care (01) ==
LOC: JER 23:07
DX: J45.909 Unspecified asthma, uncomplicated (principal); R05 Cough; R09.81 Nasal congestion
CPT/HCPCS: 99282-25

== ENCOUNTER 2020-08-23 15:43 | Emergency (ER) | payer OTHER ==
[2020-08-23 15:50] VITALS: BP 123/80; PULSE 72; TEMP 98.2; BMI 34.7
[2020-08-23] MEDS ORDERED: KETOROLAC TROMETHAMINE 30 MG/1 ML VIAL IVPB ONE (16:34)
[2020-08-23] MEDS ORDERED: METOCLOPRAMIDE HCL INJECTION 10 MG/2 ML VIAL IVPUSH ONE (16:34)
[2020-08-23] MEDS ORDERED: SODIUM CHLORIDE 0.9% 500 ML INFUS.BAG IV ONE (16:35)
[2020-08-23] MEDS ORDERED: METOCLOPRAMIDE HCL INJECTION 10 MG/2 ML VIAL ONE (16:52)
[2020-08-23] MEDS ORDERED: KETOROLAC TROMETHAMINE 30 MG/1 ML VIAL ONE (16:53)
[2020-08-23 17:47] LABS: BASO % 0.7 % (0-2.0); HEMOGLOBIN 11.3 GM/dL (10.7-15.3); LYMPH % 32.5 % (8-40); MCH 26.4 pg (25.7-33.7); MCHC 33.1 g/dl (32.0-36.0); MEAN CELL VOLUME 79.6 fl (80-96); MEAN PLT VOLUME 9.2 fl (7.5-11.1); MONO % 8.8 % (3.8-10.2); PLATELET COUNT 295 K/MM3 (134-434); RBC 4.28 M/mm3 (3.60-5.2); RDW 15.7 % (11.6-15.6); WHITE BLOOD COUNT 6.5 K/mm3 (4.0-10.0)
[2020-08-23 17:50] LABS: URINE APPEARANCE CLEAR; URINE BILIRUBIN NEGATIVE (NEGATIVE); URINE COLOR YELLOW; URINE GLUCOSE (UA) NEGATIVE (NEGATIVE); URINE KETONE TRACE (NEGATIVE); URINE LEUK ESTERASE NEGATIVE (NEGATIVE); URINE NITRITE NEGATIVE (NEGATIVE); URINE PROTEIN TRACE (NEGATIVE)
[2020-08-23 17:53] LABS: HCG,QUALITATIVE URINE Negative
[2020-08-23 18:02] LABS: ALBUMIN 3.9 g/dl (3.4-5.0); CALCIUM 8.4 mg/dL (8.5-10.1)
[2020-08-23 18:03] LABS: BLOOD UREA NITROGEN 6.8 mg/dL (7-18)
[2020-08-23 18:06] LABS: CREATININE 0.7 mg/dL (0.55-1.3)
[2020-08-23 18:07] LABS: BILIRUBIN,TOTAL 0.3 mg/dL (0.2-1); TOT PROT 7.5 g/dl (6.4-8.2)
== END 2020-08-23 19:40 | disposition home or self-care (01) ==
LOC: JER 15:43
PROC: 3E0333Z Introduction of Anti-inflammatory into Peripheral Vein, Percutaneous Approach (ICD-10-PCS; principal; 2020-08-23)
PROC: 3E033NZ Introduction of Analgesics, Hypnotics, Sedatives into Peripheral Vein, Percutaneous Approach (ICD-10-PCS; 2020-08-23)
DX: R51.9 Headache, unspecified (principal)
CPT/HCPCS: 36415; 70450-TC; 80053; 81003; 84703; 85025; 87077; 87086; 93005; 93010; 99285-25

== ENCOUNTER 2020-11-16 20:46 | Emergency (ER) | payer OTHER ==
[2020-11-16 21:05] VITALS: BP 140/74; PULSE 89; TEMP 99; BMI 32.9
== END 2020-11-16 22:08 | disposition home or self-care (01) ==
LOC: JER 20:46
DX: U07.1 COVID-19 (principal)
CPT/HCPCS: 99283-25; C9803; U0003; U0005

== ENCOUNTER 2023-02-24 15:09 | Emergency (ER) | payer OTHER ==
[2023-02-24 15:18] VITALS: BP 125/69; PULSE 74; RESP 20; TEMP 98.5; BMI 32.1
[2023-02-24] MEDS ORDERED: FAMOTIDINE 20 MG/50 ML IVPB 20 MG/50 ML MG IVPB ONE ×2 (16:19→16:21)
[2023-02-24] MEDS ORDERED: ACETAMINOPHEN 1000 MG/100 ML BAG IVPB ONE (16:21)
[2023-02-24] MEDS ORDERED: MAG HYDROX/AL HYDROX/SIMETH 30 ML UNIT-DOSE CUP PO ONE (16:22)
[2023-02-24] MEDS ORDERED: MAG HYDROX/AL HYDROX/SIMETH 30 ML UNIT-DOSE CUP ONE (16:24)
[2023-02-24] MEDS ORDERED: ACETAMINOPHEN INJECTION 100 ML IVPB ONE (16:24)
[2023-02-24 16:54] LABS: BASO % 0.8 % (0-2.0); EOS % 2.1 % (0-4.5); HEMATOCRIT 35.6 % (32.4-45.2); HEMOGLOBIN 12.1 GM/dL (10.7-15.3); LYMPH % 32.8 % (8-40); MCH 27.2 pg (25.7-33.7); MEAN PLT VOLUME 8.9 fl (7.5-11.1); NEUT % 53.3 % (42.8-82.8); PLATELET COUNT 304 10^3/uL (134-434); RBC 4.45 M/mm3 (3.60-5.2); RDW 15.2 % (11.6-15.6); WHITE BLOOD COUNT 5.6 K/mm3 (4.0-10.0)
[2023-02-24] MEDS ORDERED: IBUPROFEN 400 MG TABLET (FP) PO ONE (17:06)
[2023-02-24 17:10] LABS: LACTIC ACID 2.1 mmol/L (0.4-2.0)
[2023-02-24 17:12] LABS: POTASSIUM 3.5 mmol/L (3.5-5.1)
[2023-02-24 17:13] LABS: CALCIUM 8.7 mg/dL (8.5-10.1)
[2023-02-24 17:14] LABS: ALBUMIN 3.6 g/dl (3.4-5.0); BLOOD UREA NITROGEN 5.8 mg/dL (7-18)
[2023-02-24 17:17] LABS: CREATININE 0.7 mg/dL (0.55-1.3)
[2023-02-24 17:18] LABS: TOT PROT 7.6 g/dl (6.4-8.2)
[2023-02-24 17:19] LABS: BILIRUBIN,TOTAL 0.3 mg/dL (0.2-1)
[2023-02-24 18:44] LABS: PH,URINE 5.5 (5.0-8.0); URINE APPEARANCE CLEAR; URINE BILIRUBIN NEGATIVE (NEGATIVE); URINE COLOR YELLOW; URINE GLUCOSE (UA) NEGATIVE (NEGATIVE); URINE KETONE TRACE (NEGATIVE); URINE LEUK ESTERASE NEGATIVE (NEGATIVE); URINE NITRITE NEGATIVE (NEGATIVE); URINE PROTEIN NEGATIVE (NEGATIVE)
[2023-02-24] MEDS ORDERED: SODIUM CHLORIDE 0.9% 1000 ML INFUS.BAG IV ONE (18:57)
== END 2023-02-24 21:58 | disposition home or self-care (01) ==
LOC: JER 15:09
PROC: 3E033GC Introduction of Other Therapeutic Substance into Peripheral Vein, Percutaneous Approach (ICD-10-PCS; principal; 2023-02-24)
PROC: 3E033NZ Introduction of Analgesics, Hypnotics, Sedatives into Peripheral Vein, Percutaneous Approach (ICD-10-PCS; 2023-02-24)
DX: K29.70 Gastritis, unspecified, without bleeding (principal); K20.90 Esophagitis, unspecified without bleeding; R11.2 Nausea with vomiting, unspecified; R14.0 Abdominal distension (gaseous); R63.0 Anorexia; R50.9 Fever, unspecified; R10.811 Right upper quadrant abdominal tenderness
CPT/HCPCS: 36415; 76705-TC; 80053; 81003; 82150; 83605; 83690; 84703; 85025; 93005; 93010; 96365; 96375; 99285-25

== ENCOUNTER 2023-11-15 03:42 | Emergency (ER) | payer OTHER ==
[2023-11-15 03:57] VITALS: BP 141/93; PULSE 91; RESP 18; TEMP 99.3; BMI 30.2
[2023-11-15] MEDS: ACETAMINOPHEN 325 MG TABLET (FP) PO ONE (04:35)
[2023-11-15] MEDS ORDERED: ACETAMINOPHEN 325 MG TABLET (FP) ONE (04:36)
== END 2023-11-15 05:38 | disposition home or self-care (01) ==
LOC: JER 03:42
DX: R51.9 Headache, unspecified (principal); H91.91 Unspecified hearing loss, right ear
CPT/HCPCS: 99283-25

== ENCOUNTER 2024-02-15 20:19 | Emergency (ER) | payer OTHER ==
[2024-02-15 20:29] VITALS: BP 120/82; PULSE 77; RESP 18; TEMP 98.7; BMI 30.2
[2024-02-15] MEDS ORDERED: LIDOCAINE 4% PATCH TP ONE (21:44)
[2024-02-15] MEDS ORDERED: ACETAMINOPHEN 325 MG TABLET (FP) ONE (21:44)
[2024-02-15] MEDS ORDERED: KETOROLAC TROMETHAMINE 30 MG/1 ML VIAL ONE (21:45)
[2024-02-15] MEDS: KETOROLAC TROMETHAMINE 30 MG/1 ML VIAL IM ONE (21:52)
[2024-02-15] MEDS: ACETAMINOPHEN 325 MG TABLET (FP) PO ONE (21:53)
[2024-02-15] MEDS: LIDOCAINE 4% PATCH TP ONE (21:53)
[2024-02-16] MEDS ORDERED: LIDOCAINE PATCH REMOVAL MC SCH (10:00)
== END 2024-02-15 23:50 | disposition home or self-care (01) ==
LOC: JER 20:19
PROC: 3E0133Z Introduction of Anti-inflammatory into Subcutaneous Tissue, Percutaneous Approach (ICD-10-PCS; principal; 2024-02-15)
DX: S29.011A Strain of muscle and tendon of front wall of thorax, initial encounter (principal); R06.02 Shortness of breath; X58.XXXA Exposure to other specified factors, initial encounter
CPT/HCPCS: 71046-TC-FY; 93005; 93010; 96372; 99284-25